=== PATIENT | male | born 1950 | race Caucasian/White ===

== ENCOUNTER 2017-03-07 15:43 | Emergency (ER) | payer MEDICAID, OTHER ==
[~2017-03-07] VITALS: Ht 180.3 cm; Wt 68.0 kg
[~2017-03-07 15:43] MED LIST: LOSA25TA13 PO
--- NOTE | 2017-03-07 16:13 | NUR ---
DR DODD AT THE BEDSIDE FOR EVAL AND EXAM.
[2017-03-07] MEDS ORDERED: TDAP DIPH,PERTUSS,TET VAC/PF 0.5 ML DISP.SYRIN IM ONE ×2 (16:15→16:32)
[2017-03-07] MEDS ORDERED: NEOMY/BACITRA/POLYMYXIN B OINT UD PACKET TP ONE ×2 (16:15→16:32)
--- NOTE | 2017-03-07 17:08 | NUR ---
pt left er for ct.
--- NOTE | 2017-03-07 17:53 | NUR ---
Patient is resting comfortably in bed with eyes closed, NAD noted.
--- NOTE | 2017-03-07 18:34 | NUR ---
Patient discharged to home in stable conditon. Written and verbal after care instructions given. Patient verbalizes understanding of instructions.
[2017-03-07 18:36] VITALS: BP 140/77
== END 2017-03-07 18:36 | disposition home or self-care (01) ==
LOC: ER 15:45
DX: S01.81XA Laceration without foreign body of other part of head, initial encounter (principal); S40.012A Contusion of left shoulder, initial encounter; R51 Headache; I10 Essential (primary) hypertension; F10.20 Alcohol dependence, uncomplicated; F17.200 Nicotine dependence, unspecified, uncomplicated; F11.10 Opioid abuse, uncomplicated; V13.4XXA Pedal cycle driver injured in collision with car, pick-up truck or van in traffic accident, initial encounter; Y93.89 Activity, other specified; Y92.89 Other specified places as the place of occurrence of the external cause; Y99.8 Other external cause status
CPT/HCPCS: 70450; 90715; A4217; A4663

== ENCOUNTER 2017-09-01 21:59 | Emergency (ER) | payer OTHER ==
[~2017-09-01] VITALS: Ht 180.3 cm; Wt 79.4 kg
[2017-09-01] MEDS: MORPHINE SULFATE 10 MG/1 ML DISP.SYRIN IM ONE (23:12)
[2017-09-01] MEDS: CARISOPRODOL 350 MG TABLET PO ONE (23:13)
[2017-09-01] MEDS ORDERED: CARISOPRODOL 350 MG TABLET ONE (23:33)
[2017-09-01] MEDS ORDERED: MORPHINE SULFATE 10 MG/1 ML DISP.SYRIN ONE (23:33)
--- NOTE | 2017-09-02 00:58 | NUR ---
Patient discharged to home in stable conditon. Written and verbal after care instructions given. Patient verbalizes understanding of instructions.
== END 2017-09-02 00:58 | disposition home or self-care (01) ==
LOC: ER 21:59
DX: M54.5 Low back pain (principal); Z59.0 Homelessness; I10 Essential (primary) hypertension; F17.200 Nicotine dependence, unspecified, uncomplicated
CPT/HCPCS: 72100; A4663; J2270

== ENCOUNTER 2018-04-26 20:52 | Emergency (ER) | payer SELFPAY ==
[~2018-04-26] VITALS: Ht 180.3 cm; Wt 65.8 kg
--- NOTE | 2018-04-26 22:24 | NUR ---
Dr. Hoang BARRETO MD at bedside for MSE.
[2018-04-26] MEDS ORDERED: HYDROMORPHONE 2 MG/1 ML DISP.SYRIN ONE (22:41)
[2018-04-26] MEDS ORDERED: diphenhydrAMINE 50 MG/1 ML VIAL ONE (22:41)
[2018-04-26] MEDS ORDERED: diphenhydrAMINE 50 MG/1 ML VIAL IM ONE (22:45)
[2018-04-26] MEDS ORDERED: LIDOCAINE HCL 1% 20 ML VIAL IJ ONE (22:45)
[2018-04-26] MEDS ORDERED: TDAP DIPH,PERTUSS,TET VAC/PF 0.5 ML DISP.SYRIN IM ONE ×2 (22:45→23:52)
[2018-04-26] MEDS ORDERED: HYDROMORPHONE 1 MG/1 ML DISP.SYRIN IM ONE (22:45)
--- NOTE | 2018-04-27 00:01 | NUR ---
Patient discharged to home in stable conditon. Written and verbal after care instructions given. Patient verbalizes understanding of instructions. Pt left ER in steady gait. All belongings with pt. VSS.
[2018-04-27 00:03] VITALS: BP 158/74
== END 2018-04-27 00:04 | disposition home or self-care (01) ==
LOC: ER 20:53
DX: L02.413 Cutaneous abscess of right upper limb (principal); I10 Essential (primary) hypertension; F17.200 Nicotine dependence, unspecified, uncomplicated
CPT/HCPCS: 10060; 90471; 90715; 96372 ×2; 99284; A4663; J1170; J1200; J3490

== ENCOUNTER 2018-04-28 22:28 | Inpatient (IN) | payer SELFPAY ==
[~2018-04-28] VITALS: Ht 180.3 cm; Wt 68.0 kg
[2018-04-29 00:39] LABS: BASOPHILS # (AUTO) 0.1 K/uL (0.0-8.0); BASOPHILS % (AUTO) 0.8 % (0.0-2.0); EOSINOPHILS # (AUTO) 0.2 K/uL (0.0-0.7); EOSINOPHILS % (AUTO) 1.7 % (0.0-7.0); HEMATOCRIT 38.3 % (36.7-47.1); HEMOGLOBIN 12.8 g/dL (12.5-16.3); LYMPHOCYTES # (AUTO) 1.2 K/uL (20.0-40.0); LYMPHOCYTES % (AUTO) 11.9 % (20.5-51.5); MEAN CORPUSCULAR HEMOGLOBIN 27.1 uug (23.8-33.4); MEAN CORPUSCULAR HGB CONC 33 g/dL (32.5-36.3); MEAN CORPUSCULAR VOLUME 81.1 fL (73.0-96.2); MONOCYTES # (AUTO) 0.8 K/uL (2.0-10.0); MONOCYTES % (AUTO) 8.2 % (0.0-11.0); NEUTROPHILS # (AUTO) 7.6 K/uL (1.8-8.9); NEUTROPHILS % (AUTO) 77.4 % (38.5-71.5); PLATELET COUNT (AUTO) 375 K/uL (152-348); RED BLOOD CELL COUNT(AUTO) 4.71 MIL/uL (4.06-5.63); WHITE BLOOD COUNT (AUTO) 9.8 K/uL (3.6-10.2)
[2018-04-29] MEDS ORDERED: VANCOMYCIN IV 1,000 MG in IV DEXTROSE 5% 250 ML IV ONE (00:45)
[2018-04-29] MEDS ORDERED: ONDANSETRON IV *ER 4 MG/2 ML VIAL IV ONE (00:45)
[2018-04-29] MEDS ORDERED: CLINDAMYCIN PHOSPHATE IV 600 MG in IV DEXTROSE 5% 100 ML IV ONE (00:45)
[2018-04-29] MEDS ORDERED: PIPERACILLIN SODIUM/TAZOBACTAM 3.375 G in IV DEXTROSE 5% 50 ML IV ONE (00:45)
[2018-04-29] MEDS ORDERED: HYDROMORPHONE 1 MG/1 ML DISP.SYRIN IV ONE (00:45)
[2018-04-29 00:48] LABS: CREATININE 0.9 mg/dL (0.6-1.3); POTASSIUM 4.3 mmol/L (3.5-5.1)
[2018-04-29] MEDS ORDERED: HYDROMORPHONE 2 MG/1 ML DISP.SYRIN ONE (00:49)
[2018-04-29] MEDS ORDERED: ONDANSETRON 4 MG/2 ML VIAL ONE (00:50)
[2018-04-29] MEDS ORDERED: PIPERACILLIN/TAZOBACTAM/D5W 50 ML IV ONE (00:50)
[2018-04-29 00:54] LABS: BILIRUBIN,DIRECT 0.2 mg/dL (0.0-0.2); BILIRUBIN,TOTAL 0.7 mg/dL (0.2-1.0); TOTAL PROTEIN, SERUM 7.7 g/dL (6.4-8.2)
[2018-04-29] MEDS ORDERED: Z GUARD REMEDY PASTE 57 GM TUBE TOP PRN (01:00)
[2018-04-29] MEDS ORDERED: ACETAMINOPHEN 325 MG TABLET PO PRN (01:00)
[2018-04-29] MEDS ORDERED: MAGNESIUM HYDROXIDE 30 ML LIQUID UDC PO PRN (01:00)
[2018-04-29] MEDS ORDERED: ONDANSETRON 4 MG/2 ML VIAL IV PRN (01:00)
[2018-04-29] MEDS ORDERED: HYDROMORPHONE 1 MG/1 ML DISP.SYRIN IV PRN (01:00)
[2018-04-29] MEDS ORDERED: CLINDAMYCIN PHOSPHATE 600 MG/4 ML VIAL ONE (01:17)
[2018-04-29] MEDS ORDERED: VANCOMYCIN IV 200 ML ONE (02:02)
--- NOTE | 2018-04-29 02:05 | NUR ---
Pt. admitted to Telemetry , under care of Dr. Abraham. Diagnosis: Cellulitis (Right shoulder) Belongs List completed. VSS. Report given to inpatient floor RN.
[2018-04-29 03:14] VITALS: BP 122/77
--- NOTE | 2018-04-29 03:40 | NUR ---
Received report from ER nurse. Pt arrived in the unit at 0240 via wheelchair accompanied by RN. No acute distress noted. Left AC gauge 20, patent and intact. VSS. Pertinent assessments done. Oriented pt to the unit and equipment. Abscess on the right shoulder noted with swelling and redness. Picture taken and placed in chart. As per ER nurse, ordered open to air. Kept site clean. Safety measures maintained. Call light and personal belongings within reach. Will continue to monitor.
[2018-04-29] MEDS: HYDROCODONE/APAP 5-325MG TABLET PO PRN ×4 (03:59→22:43)
--- NOTE | 2018-04-29 06:19 | NUR ---
Pt slept comfortably. C/o pain on right shoulder 03/29, [place] was given at 0359. Will continue to monitor.
--- NOTE | 2018-04-29 07:38 | NUR ---
patient resting comfortably in bed at this time, no s/s of distress. wound care consult will be placed. right shoulder cellulitis. will monitor wound site and provide care per md orders. a/ox4. heroin user. will monitor bp. ambulatory. will monitor throughout shift.
[2018-04-29] MEDS: LOSARTAN POTASSIUM 25 MG TABLET PO SCH (08:54)
[2018-04-29 11:24] VITALS: BP 119/71
--- NOTE | 2018-04-29 11:35 | NUR ---
Clinical Pharmacy Note: Vancomycin Pharmacy to Dose Subjective: To start vancomycin in this 67 y/o male for indication of cellulitis Objective: weight 68 kg height 180 cm BUN 15 Scr 0.9 wbc 9.8 temp 97.6 1gm vanco given 04/29 @ 0045 in ER Assessment/Plan As renal function appears ok, will start regimen of 1gm vanco q12hr for estimated trough of 17. 2nd dose today at 1230. Trough before 4th dose will be due tomorrow at 1200. Will check when trough available and adjust as needed. Will follow
[2018-04-29] MEDS: VANCOMYCIN IV 1 G in PREMIXED 0 EACH IV SCH ×2 (11:55→23:35)
--- NOTE | 2018-04-29 12:38 | NUR ---
WOUND CARE CONSULT WOUND CARE RECEIVED CONSULT FOR ABSCESS RIGHT SHOULDER. WOUND CARE WILL DEFER CONSULT AND TREATMENT PLAN TO SURGICAL TEAM AT THIS TIME. PATIENT WITH BUNNY AT 21. WILL SEE PRN. DISCUSSED WITH NAVIGATION TEACHER.
[2018-04-29 15:48] VITALS: BP 93/51
[2018-04-29] MEDS ORDERED: SILVER NITRATE APPLICATOR STICK EACH TP STA (18:40)
[2018-04-29] MEDS ORDERED: LIDOCAINE 2%-EPI 1:100,000 20 ML VIAL TP STA (18:40)
[2018-04-29 19:00] VITALS: BP 121/61
--- NOTE | 2018-04-29 19:28 | NUR ---
RECEIVED PT AWAKE, ALERT, AND ORIENTEDX4. PT SHOWS NO SIGNS OF DISTRESS. PT JUST HAD HIS INCISION AND DRAINAGE DONE. CALL LIGHT WITHIN REACH. BED ALARM ON AND IN LOW POSITION. SIDE RAILS UPX2. WILL CONTINUE TO MONITOR.
--- NOTE | 2018-04-29 19:48 | NUR ---
non-administration: silver nitrate applicator. returned in 'return to pharmacy' bin in medication room.
[2018-04-30] MEDS: HYDROCODONE/APAP 5-325MG TABLET PO PRN ×4 (03:12→18:02)
[2018-04-30 04:00] VITALS: BP 138/58
--- NOTE | 2018-04-30 06:32 | NUR ---
PT SLEPT THROUGHOUT THE SHIFT. PT SHOWS NO SIGNS OF DISTRESS. PRESCRIBED MEDICATION GIVEN AND PT TOLERATED IT WELL. PT GIVEN PAIN MEDICATION. REFUSED BLOOD WORKS. CHARGE NURSE AWARE. SAFETY AND COMFORT PROVIDED. WILL ENDORSE ACCORDINGLY TO INCOMING NURSE.
[2018-04-30] MEDS ORDERED: HYDROMORPHONE 2 MG/1 ML DISP.SYRIN IV PRN (08:00)
--- NOTE | 2018-04-30 08:01 | NUR ---
Awake, alert. Saline lock pulled out. Explained need of saline lock
[2018-04-30] MEDS: LOSARTAN POTASSIUM 25 MG TABLET PO SCH (08:38)
[2018-04-30 09:30] LABS: BASOPHILS # (AUTO) 0.1 K/uL (0.0-8.0); BASOPHILS % (AUTO) 1.4 % (0.0-2.0); EOSINOPHILS # (AUTO) 0.1 K/uL (0.0-0.7); EOSINOPHILS % (AUTO) 1.1 % (0.0-7.0); HEMATOCRIT 39.7 % (36.7-47.1); HEMOGLOBIN 13.2 g/dL (12.5-16.3); LYMPHOCYTES % (AUTO) 15.9 % (20.5-51.5); MEAN CORPUSCULAR HEMOGLOBIN 27.1 uug (23.8-33.4); MEAN CORPUSCULAR HGB CONC 33 g/dL (32.5-36.3); MEAN CORPUSCULAR VOLUME 81.5 fL (73.0-96.2); MONOCYTES # (AUTO) 0.5 K/uL (2.0-10.0); MONOCYTES % (AUTO) 8.2 % (0.0-11.0); NEUTROPHILS # (AUTO) 4.7 K/uL (1.8-8.9); NEUTROPHILS % (AUTO) 73.4 % (38.5-71.5); PLATELET COUNT (AUTO) 395 K/uL (152-348); RED BLOOD CELL COUNT(AUTO) 4.87 MIL/uL (4.06-5.63); WHITE BLOOD COUNT (AUTO) 6.4 K/uL (3.6-10.2)
[2018-04-30 09:39] LABS: CREATININE 0.7 mg/dL (0.6-1.3); MAGNESIUM 2.1 mg/dL (1.8-2.4); PHOSPHOROUS 2.7 mg/dL (2.5-4.9); POTASSIUM 3.8 mmol/L (3.5-5.1)
[2018-04-30 11:44] VITALS: BP 117/72
--- NOTE | 2018-04-30 12:00 | NUR ---
Attempted saline lock but unsuccessful
[2018-04-30] MEDS: VANCOMYCIN IV 1 G in PREMIXED 0 EACH IV SCH ×2 (14:00→23:00)
--- NOTE | 2018-04-30 14:00 | NUR ---
Saline lock attempted by KEVIN Vásquez and [employer] but still unsuccessful. With midline order. Per platform mill supervisor, will come in by 1800
--- NOTE | 2018-04-30 14:11 | NUR ---
Clinical Pharmacy Note: Vancomycin Pharmacy to Dose Subjective: To continue vancomycin in this 67 y/o male for indication of cellulitis Objective: weight 68 kg height 180 cm BUN 13 Scr 0.7 wbc 6.4 temp 97.9 Vanco trough level: 7.7 Assessment/Plan Since vanco through level is sub-therapeutic, will change vanco dose from 1gm vanco IVPB q12hr to vanco 1gm IVPB q9h for estimated trough of 16 mcg/ml. 1st dose is due today at 1400. Plan to order trough level before 4th dose (not yet ordered) . Will follow
[2018-04-30 16:10] VITALS: BP 136/77
[2018-04-30] MEDS ORDERED: IBUPROFEN 400 MG TABLET PO PRN (17:15)
[2018-04-30 19:00] VITALS: BP 117/68
--- NOTE | 2018-04-30 19:00 | NUR ---
Vancomycin IV not infused, no IV access. [employer] Log[employer] Manager informed midline nurse still not here. Endorsed for further care
--- NOTE | 2018-04-30 19:25 | NUR ---
RECEIVED PT AWAKE, ALERT, AND ORIENTEDX4. PT SHOWS NO SIGNS OF DISTRESS. ENDORSE BY DAYSHIFT NURSE THAT PT WILL HAVE HIS MIDLINE INSERTION. WE ARE JUST WAITING FOR THE IV NURSE . SAFETY AND COMFORT PROVIDED TO THE PT. WILL CONTINUE TO MONITOR.
--- NOTE | 2018-04-30 23:00 | NUR ---
PT VANCOMYCIN FOR 1400 AND 2300 WAS NOT INFUSED DUE TO STILL WAITING FOR THE MIDLINE INSERTION FOR THE PT. PT STABLE. WILL CONTINUE TO MONITOR.
[2018-05-01] MEDS: HYDROCODONE/APAP 5-325MG TABLET PO PRN ×2 (01:26→08:11)
[2018-05-01 04:00] VITALS: BP 106/50
--- NOTE | 2018-05-01 06:33 | NUR ---
PT SLEPT INTERMITTENTLY DURING THE SHIFT. PT SHOWS NO SIGNS OF DISTRESS. PRESCRIBED MEDICATION GIVEN AND PT TOLERATED IT WELL.PT JUST GOT [place] FOR PAIN. GOT HIS NATIONAL EXPANSION RECRUITER FOR HIM. PUT A NOTE THAT I TOOK IT AND THAT ITS WITH US AND WE WILL RETURN IT AND HE CAN JUST ASKED FOR IT .SAFETY AND COMFORT PROVIDED. WILL ENDORSE ACCORDINGLY TO INCOMING NURSE FOR CONTINUITY OF CARE.
[2018-05-01 06:52] LABS: CREATININE 0.8 mg/dL (0.6-1.3); POTASSIUM 3.6 mmol/L (3.5-5.1)
[2018-05-01 07:28] LABS: BASOPHILS # (AUTO) 0.1 K/uL (0.0-8.0); BASOPHILS % (AUTO) 0.9 % (0.0-2.0); EOSINOPHILS # (AUTO) 0.4 K/uL (0.0-0.7); EOSINOPHILS % (AUTO) 5.4 % (0.0-7.0); HEMATOCRIT 37.9 % (36.7-47.1); HEMOGLOBIN 12.7 g/dL (12.5-16.3); LYMPHOCYTES % (AUTO) 29.9 % (20.5-51.5); MEAN CORPUSCULAR HEMOGLOBIN 27.5 uug (23.8-33.4); MEAN CORPUSCULAR HGB CONC 34 g/dL (32.5-36.3); MEAN CORPUSCULAR VOLUME 82.2 fL (73.0-96.2); MONOCYTES # (AUTO) 0.6 K/uL (2.0-10.0); MONOCYTES % (AUTO) 8.8 % (0.0-11.0); NEUTROPHILS # (AUTO) 3.8 K/uL (1.8-8.9); PLATELET COUNT (AUTO) 418 K/uL (152-348); RED BLOOD CELL COUNT(AUTO) 4.61 MIL/uL (4.06-5.63); WHITE BLOOD COUNT (AUTO) 6.8 K/uL (3.6-10.2)
--- NOTE | 2018-05-01 08:00 | NUR ---
NON ADMIN VANCOMYCIN IV DUE TO PENDING MIDLINE INSERTION. AWARE.
[2018-05-01] MEDS: LOSARTAN POTASSIUM 25 MG TABLET PO SCH (08:07)
[2018-05-01] MEDS: VANCOMYCIN IV 1 G in PREMIXED 0 EACH IV SCH (09:00)
[2018-05-01] MEDS ORDERED: HYDR-3326 PO (09:55)
[2018-05-01] MEDS ORDERED: SULF1TAB48 PO (09:55)
[2018-05-01] MEDS ORDERED: CEPH-570 PO (09:55)
[2018-05-01 11:16] VITALS: BP 108/57
--- NOTE | 2018-05-01 11:26 | NUR ---
WOUND TREATMENT DONE ORDERED, PT C/O OF SLIGHT PAIN AND TENDERNESS, NO S/S OF INFECTION/COMPLICATIONS. PATIENT TOLERATED PROCEDURE WELL, VS STABLE, AFEBRILE. DISCUSSED WITH PATIENT REGARDING F/U WITH PCP AND F/U WITH WOUND CARE UPON DISCHARGE. PT VERBALIZED UNDERSTANDING.
--- NOTE | 2018-05-01 11:29 | NUR ---
PATIENT DISCHARGED TO SELF CARE. PT STATED WILL GO BACK TO [facility].
--- NOTE | 2018-05-01 13:30 | NUR ---
DISCHARGE TEACHINGS/EDUCATION PROVIDED, PT VERBALIZED UNDERSTANDING. INSTRUCTED PATIENT TO FOLLOW UP WITH PCP FOR MEDICAL AND WOUND CARE/TREATMENT. COPY OF PRESCRIPTION PROVIDED. BELONGING LIST ACCOUNTED AND SIGNED FOR. ID BAND REMOVED. PT HAS NO IV ACCESS.
--- NOTE | 2018-05-01 13:50 | NUR ---
PATIENT LEFT THE UNIT, AMBULATORY, IN NO DISTRESS. PER SECURITY, PATIENT'S BICYCLE IS LOCATED AT THE LOBBY AND READY FOR THE PATIENT.
== END 2018-05-01 13:45 | disposition home or self-care (01) | DRG 603 ==
LOC: ER 22:30 → TELE 04-29 02:21 → MED 04-29 10:45
PROVIDERS: ADMIT Internal Medicine; ATTEND Nurse Practitioner Acute Care
PROC: 0H9BX0Z Drainage of Right Upper Arm Skin with Drainage Device, External Approach (ICD-10-PCS; principal; 2018-04-29)
DX: L03.113 Cellulitis of right upper limb (principal); L02.413 Cutaneous abscess of right upper limb; S41.031S Puncture wound without foreign body of right shoulder, sequela; X78.8XXS Intentional self-harm by other sharp object, sequela; Z59.0 Homelessness; Z91.14 Patient's other noncompliance with medication regimen; E88.09 Other disorders of plasma-protein metabolism, not elsewhere classified; D47.3 Essential (hemorrhagic) thrombocythemia; I10 Essential (primary) hypertension; B19.20 Unspecified viral hepatitis C without hepatic coma; F11.10 Opioid abuse, uncomplicated; F19.10 Other psychoactive substance abuse, uncomplicated
CPT/HCPCS: 36415; 70030-TC; 71045; 73030; 83605; 83735; 84100; 85025; 85730; 87040; 87070; 87077; 87806; 93005; A4663; J1170; J2405; J2543; J3370; J3490; J7060

== ENCOUNTER 2018-05-02 23:50 | Emergency (ER) | payer SELFPAY ==
[~2018-05-02] VITALS: Ht 180.3 cm; Wt 68.0 kg
[~2018-05-02 23:50] MED LIST changes: +CEPH-570 PO; +HYDR-3326 PO; +SULF1TAB48 PO
[2018-05-03] MEDS ORDERED: ONDANSETRON 4 MG/2 ML VIAL IM ONE (01:00)
[2018-05-03] MEDS ORDERED: HYDROMORPHONE 1 MG/1 ML DISP.SYRIN IM ONE (01:00)
[2018-05-03] MEDS ORDERED: ONDANSETRON 4 MG/2 ML VIAL ONE (01:04)
[2018-05-03] MEDS ORDERED: HYDROMORPHONE 2 MG/1 ML DISP.SYRIN ONE (01:04)
--- NOTE | 2018-05-03 02:38 | NUR ---
Patient discharged to home in stable conditon. Written and verbal after care instructions given. Patient verbalizes understanding of instructions. Applied WARREN wrap to pt's left ankle. Crutch training provided. Pt ambulated out of ER in stable condition. VSS.
[2018-05-03 02:40] VITALS: BP 138/88
== END 2018-05-03 02:41 | disposition home or self-care (01) ==
LOC: ER 23:53
DX: S93.402A Sprain of unspecified ligament of left ankle, initial encounter (principal); I10 Essential (primary) hypertension; F17.200 Nicotine dependence, unspecified, uncomplicated; F11.10 Opioid abuse, uncomplicated; F12.10 Cannabis abuse, uncomplicated; Z59.0 Homelessness; X58.XXXA Exposure to other specified factors, initial encounter; Y93.89 Activity, other specified; Y92.89 Other specified places as the place of occurrence of the external cause; Y99.8 Other external cause status
CPT/HCPCS: 73610; A4663; J1170; J2405

== ENCOUNTER 2019-02-08 22:50 | Emergency (ER) | payer MEDICAID, MEDICARE ==
[~2019-02-08] VITALS: Ht 180.3 cm; Wt 68.0 kg
[~2019-02-08 22:50] MED LIST changes: -LOSA25TA13 PO; +LOSA25TA27 PO
[2019-02-08] MEDS ORDERED: PANTOPRAZOLE SODIUM 40 MG TABLET.DR PO ONE ×2 (23:41→23:45)
[2019-02-08] MEDS ORDERED: MAG HYDROX/AL HYDROX/SIMETH 30 ML LIQUID UDC ONE (23:41)
[2019-02-08] MEDS ORDERED: DICYCLOMINE HCL LIQ 10 MG/5 ML UDC ONE (23:41)
[2019-02-08] MEDS ORDERED: DICYCLOMINE HCL LIQ 10 MG/5 ML UDC PO ONE (23:45)
[2019-02-08] MEDS ORDERED: MAG HYDROX/AL HYDROX/SIMETH 30 ML LIQUID UDC PO ONE (23:45)
--- NOTE | 2019-02-08 23:48 | NUR ---
PATIENT PROVIDED WITH MEAL
--- NOTE | 2019-02-08 23:52 | NUR ---
PATIENT STATES "I FEEL BETTER NOW."
--- NOTE | 2019-02-08 23:58 | NUR ---
Patient given written and verbal discharge instructions. Patient verbalizes understanding of instructions. Patient is ambulatory with steady gait. Refuses offer of halfway placement. Patient given list of available shelters in surrounding area.
[2019-02-09] VITALS: BP 135/88
== END 2019-02-09 00:02 | disposition home or self-care (01) ==
LOC: ER 22:52
DX: G89.29 Other chronic pain (principal); M79.605 Pain in left leg; K21.9 Gastro-esophageal reflux disease without esophagitis; I10 Essential (primary) hypertension; F17.200 Nicotine dependence, unspecified, uncomplicated; F12.10 Cannabis abuse, uncomplicated; F11.10 Opioid abuse, uncomplicated; Z59.0 Homelessness; Z79.899 Other long term (current) drug therapy
CPT/HCPCS: A4663

== ENCOUNTER 2019-07-19 01:05 | Emergency (ER) | payer MEDICARE, MEDICAID ==
[~2019-07-19] VITALS: Ht 180.3 cm; Wt 72.6 kg
[2019-07-19] MEDS ORDERED: FLUORESCEIN SODIUM 1 MG STRIP ONE (01:17)
[2019-07-19] MEDS: FLUORESCEIN SODIUM 1 MG STRIP OP ONE (01:28)
--- NOTE | 2019-07-19 01:28 | NUR ---
Patient does not wish to proceed with medical care recommended by Dr. Bradford. Patient given information related to possible complications, up to and including , which could occur as a result of leaving the hospital at this time. Patient verbalizes understanding of risks involved due to leaving against medical advice. Patient has signed AMA form.
== END 2019-07-19 01:30 | disposition left against medical advice (07) ==
LOC: ER 01:14
DX: S05.42XA Penetrating wound of orbit with or without foreign body, left eye, initial encounter (principal); I10 Essential (primary) hypertension; F17.200 Nicotine dependence, unspecified, uncomplicated; F11.10 Opioid abuse, uncomplicated; F12.10 Cannabis abuse, uncomplicated; W22.8XXA Striking against or struck by other objects, initial encounter; Y93.89 Activity, other specified; Y92.89 Other specified places as the place of occurrence of the external cause; Y99.8 Other external cause status
CPT/HCPCS: A4663

== ENCOUNTER 2019-10-02 14:36 | Inpatient (IN) | payer MEDICARE, OTHER ==
[~2019-10-02] VITALS: Ht 180.3 cm; Wt 63.1 kg
--- NOTE | 2019-10-02 15:05 | NUR ---
PATIENT WAS MSE BY DR CARLTON. PATIENT A & O X4.
[2019-10-02] MEDS ORDERED: VANCOMYCIN IV 1,000 MG in IV DEXTROSE 5% 250 ML IV ONE (15:15)
[2019-10-02] MEDS ORDERED: PIPERACILLIN SODIUM/TAZOBACTAM 3.375 G in IV DEXTROSE 5% 50 ML IV ONE (15:15)
[2019-10-02] MEDS ORDERED: LIDOCAINE 1%-EPI 1:100,000 20 ML VIAL IJ ONE (15:15)
[2019-10-02 15:46] LABS: BASOPHILS # (AUTO) 0.1 K/uL (0.0-8.0); BASOPHILS % (AUTO) 0.6 % (0.0-2.0); EOSINOPHILS # (AUTO) 0.1 K/uL (0.0-0.7); EOSINOPHILS % (AUTO) 0.5 % (0.0-7.0); HEMATOCRIT 40.1 % (36.7-47.1); HEMOGLOBIN 13.1 g/dL (12.5-16.3); LYMPHOCYTES # (AUTO) 0.6 K/uL (20.0-40.0); LYMPHOCYTES % (AUTO) 4.2 % (20.5-51.5); MEAN CORPUSCULAR HEMOGLOBIN 25.3 uug (23.8-33.4); MEAN CORPUSCULAR HGB CONC 33 g/dL (32.5-36.3); MEAN CORPUSCULAR VOLUME 77.6 fL (73.0-96.2); MONOCYTES # (AUTO) 0.8 K/uL (2.0-10.0); MONOCYTES % (AUTO) 5.1 % (0.0-11.0); NEUTROPHILS # (AUTO) 13.6 K/uL (1.8-8.9); NEUTROPHILS % (AUTO) 89.6 % (38.5-71.5); PLATELET COUNT (AUTO) 586 K/uL (152-348); RED BLOOD CELL COUNT(AUTO) 5.17 MIL/uL (4.06-5.63); WHITE BLOOD COUNT (AUTO) 15.2 K/uL (3.6-10.2)
[2019-10-02 15:54] LABS: CREATININE 0.9 mg/dL (0.6-1.3); POTASSIUM 4.1 mmol/L (3.5-5.1)
[2019-10-02] MEDS ORDERED: PIPERACILLIN/TAZOBACTAM/D5W 50 ML IV ONE (15:56)
[2019-10-02] MEDS ORDERED: VANCOMYCIN IV 200 ML ONE (15:56)
[2019-10-02 15:59] LABS: BILIRUBIN,DIRECT 0.4 mg/dL (0.0-0.2); BILIRUBIN,TOTAL 0.8 mg/dL (0.2-1.0); TOTAL PROTEIN, SERUM 8.2 g/dL (6.4-8.2)
[2019-10-02] MEDS ORDERED: IV NORMAL SALINE 1000 ML BAG IV ONE (17:15)
--- NOTE | 2019-10-02 17:19 | NUR ---
pt transfered to floor in stable condition
[2019-10-02] MEDS ORDERED: ONDANSETRON 4 MG/2 ML VIAL IV PRN (17:30)
[2019-10-02] MEDS ORDERED: MAGNESIUM HYDROXIDE 30 ML LIQUID UDC PO PRN (17:30)
[2019-10-02] MEDS ORDERED: Z GUARD REMEDY PASTE 57 GM TUBE TOP PRN (17:30)
--- NOTE | 2019-10-02 17:35 | NUR ---
Received this patient from ER per javan, 68 yo male, with the diagnosis of abscess right buttocks. Transferred to bed comfortably. Routine admission care rendered. Placed tele SR. Awake, alert, oriented x 4, able to move all extremities on purpose. Vancomycin IV infusing well to left shoulder access. With admission orders from Dr. Avalos
[2019-10-02 18:06] VITALS: BP 132/70
[2019-10-02] MEDS: ENOXAPARIN SODIUM 40 MG/0.4 ML DISP.SYRIN SQ SCH (18:26)
[2019-10-02] MEDS: IV NS 1000 ML 1,000 ML IV PRN (18:26)
[2019-10-02] MEDS: HYDROCODONE/APAP 10-325 MG TABLET PO PRN (18:31)
--- NOTE | 2019-10-02 18:45 | NUR ---
Repeat lactic acid 2.7 Dr. Avalos informed. No new orders. IVF infusing. Afebrile.
--- NOTE | 2019-10-02 19:01 | NUR ---
PHARMACY CLINICAL NOTES ( VANCOMYCIN DOSING) S: 68 YO Patient has been having swelling and redness, warmth and tenderness to the right buttocks cheek for 1 week. Gradually worsening. Patient states this happened after he accidentally sat down on some thumb tacks in the bus. ordered Zosyn and Vancomycin for treatment of cellulitis O: BUN/SCR 14/0.9, WBC 15.3, T max 97.5, DOSING WT 63 KG , T 1/2 11.95 HRS A/P: PT received 1 dose of Vancomycin 1 gm in ER @ 1500 (dose #1). will continue with regimen of Vancomycin 1 gm IVPB q15h. This regimen would yield peak of 38 and trough of 17. Plan to order Vanco Trough prior to 4th dose (not ordered yet) will continue to monitor renal fxn and Vanco level and adjust dose if necessary.
--- NOTE | 2019-10-02 19:30 | NUR ---
Received patient awake and alert in bed, no signs of acute distress noted. Complains of some pain to the right buttocks, day shift nurse, administered PRN pain medication and says it is helping. IVF running to the left upper arm, no s/s of infection or infiltration noted. Safety measures initiated, bed is low and locked, call light within. Will continue to monitor.
[2019-10-02 20:16] VITALS: BP 110/69
--- NOTE | 2019-10-02 21:00 | NUR ---
Patient is to have 2 antibiotics running at 0600, Zosyn for 4 hours and Vanco for 1 hr 30 min. ER attempted multiple times for a second IV access on upper extremities, unable to get one asking to put one on lower extremity. Informed charge nurse. Was able to get #20 on right lower extremity.
[2019-10-02] MEDS: PIPERACILLIN/TAZOBACTAM/D5W 3.375 G in PREMIXED 1 EACH IV SCH (21:28)
[2019-10-02] MEDS ORDERED: PIPERACILLIN SODIUM/TAZOBACTAM 4.5 G in IV DEXTROSE 5% 50 ML IV SCH (22:00)
[2019-10-03 00:22] VITALS: BP 120/64
[2019-10-03] MEDS: HYDROCODONE/APAP 5-325MG TABLET PO PRN ×2 (01:24→09:37)
[2019-10-03 04:00] VITALS: BP 115/64
[2019-10-03] MEDS: PIPERACILLIN/TAZOBACTAM/D5W 3.375 G in PREMIXED 1 EACH IV SCH ×3 (06:10→22:58)
[2019-10-03] MEDS: VANCOMYCIN IV 1,000 MG in IV DEXTROSE 5% 250 ML IV SCH ×2 (06:10→20:36)
[2019-10-03] MEDS: PANTOPRAZOLE SODIUM 40 MG TABLET.DR PO SCH (06:16)
[2019-10-03] MEDS: HYDROCODONE/APAP 10-325 MG TABLET PO PRN (06:31)
--- NOTE | 2019-10-03 06:44 | NUR ---
Patient slept well, no distress noted. Pain managed with PRN [place] given x2. Both Zosyn and Vanco are now infusing, tolerating well. Safety measures given, NSR on TELE. Will endorse to next shift.
--- NOTE | 2019-10-03 07:30 | NUR ---
Patient in bed sleeping, no distress noted and no c/o at this time. Bed in low position, side rails up x2. Patient is on room air. IV intact and patent , provide safety and comfort, call light within reach. will continue to monitor
--- NOTE | 2019-10-03 09:34 | NUR ---
PHARMACY CLINICAL NOTES ( VANCOMYCIN DOSING) S: To continue vanco dosing for this 68 yo male patient for right buttock abscess O: BUN/SCR 14/0.9 (10/02) , WBC 15.3 (10/02) , T 98.4 wt 163 kg ht 180 cm A/P: Will continue same dose of Vancomycin 1 gm IVPB q15h for today. 3rd dose tonight at 2100. Plan to order Vanco Trough prior to 4th dose (ordered for 10/04 at 1130). Pharmacy shall review the level & adjust the dose if needed. Will follow.
[2019-10-03 11:25] VITALS: BP 120/60
[2019-10-03] MEDS ORDERED: HYDROMORPHONE 1 MG/1 ML DISP.SYRIN IV ONE (14:38)
--- NOTE | 2019-10-03 15:08 | NUR ---
WOUND CARE CONSULT: PT PRESENTS WITH RT BUTTOCK ABSCESS, S/P INCISION AND DRAINAGE WELL LEFT ANKLE WOUND, PRESENT ON ADMISSION. RECOMMEND SURGICAL AND DPM CONSULTS. DR TERE CERVANTES NOTIFIED OF SURGICAL CONSULT AND PT SEEN WITH [facility]CHT SURGICAL N.P. DPM CONSULT REQUESTED FROM DR THOMAS MCCLELLAN. MSG LEFT RECOMMENDATIONS MADE FOR WOUND CARE AND SKIN PROTECTION. DISCUSSED WITH NURSING STAFF AND SURGICAL N.P. LEFT ANKLE WOUND CARE RECOMMENDATIONS MADE AND DISCUSSED WITH NURSING STAFF - TIL SEEN BY DPM. WILL SEE PRN. [place] IN AGREEMENT WITH PLAN OF CARE.
[2019-10-03] MEDS: NICOTINE 21 MG/24HR PATCH TD SCH (15:30)
[2019-10-03 15:36] VITALS: BP 137/72
[2019-10-03] MEDS: HYDROMORPHONE 1 MG/1 ML DISP.SYRIN IV PRN (18:27)
[2019-10-03] MEDS: IV NS 1000 ML 1,000 ML IV PRN (19:52)
--- NOTE | 2019-10-03 20:00 | NUR ---
Received patient in bed awake A&Ox4. No SOB noted, not in distress. No complaints of pain at this time. IV on R lower leg intact and patent w/ IVF infusing. SR on Tele monitor at 68bpm. Safety measures observed. Call light in reach
[2019-10-03 20:09] VITALS: BP 125/79
[2019-10-03] MEDS: ENOXAPARIN SODIUM 40 MG/0.4 ML DISP.SYRIN SQ SCH (20:36)
[2019-10-04] VITALS: BP 125/64
[2019-10-04] MEDS: HYDROMORPHONE 1 MG/1 ML DISP.SYRIN IV PRN ×4 (02:19→21:44)
[2019-10-04 04:54] VITALS: BP 122/74
[2019-10-04] MEDS: PIPERACILLIN/TAZOBACTAM/D5W 3.375 G in PREMIXED 1 EACH IV SCH ×3 (05:16→21:34)
[2019-10-04] MEDS: PANTOPRAZOLE SODIUM 40 MG TABLET.DR PO SCH (06:08)
--- NOTE | 2019-10-04 06:39 | NUR ---
Patient slept well. Medicated w/ PRN Dilaudid 1mg IV x 1 this shift for pain on his R buttock. Dressing on R buttock changed. Wound cx sent to lab. All needs attended. Will endorse accordingly
[2019-10-04] MEDS: NICOTINE 21 MG/24HR PATCH TD SCH (08:03)
[2019-10-04 10:31] LABS: BASOPHILS % (AUTO) 0.4 % (0.0-2.0); EOSINOPHILS # (AUTO) 0.2 K/uL (0.0-0.7); EOSINOPHILS % (AUTO) 2.5 % (0.0-7.0); HEMATOCRIT 38.6 % (36.7-47.1); HEMOGLOBIN 12.4 g/dL (12.5-16.3); LYMPHOCYTES % (AUTO) 13.5 % (20.5-51.5); MEAN CORPUSCULAR HEMOGLOBIN 25.3 uug (23.8-33.4); MEAN CORPUSCULAR HGB CONC 32 g/dL (32.5-36.3); MEAN CORPUSCULAR VOLUME 78.7 fL (73.0-96.2); MONOCYTES # (AUTO) 0.5 K/uL (2.0-10.0); MONOCYTES % (AUTO) 6.7 % (0.0-11.0); NEUTROPHILS # (AUTO) 5.8 K/uL (1.8-8.9); NEUTROPHILS % (AUTO) 76.9 % (38.5-71.5); PLATELET COUNT (AUTO) 508 K/uL (152-348); WHITE BLOOD COUNT (AUTO) 7.6 K/uL (3.6-10.2)
[2019-10-04 10:40] LABS: CREATININE 0.9 mg/dL (0.6-1.3); POTASSIUM 4.2 mmol/L (3.5-5.1)
[2019-10-04 10:45] LABS: BILIRUBIN,TOTAL 0.3 mg/dL (0.2-1.0); MAGNESIUM 1.8 mg/dL (1.8-2.4); PHOSPHOROUS 3.4 mg/dL (2.5-4.9); TOTAL PROTEIN, SERUM 7.3 g/dL (6.4-8.2)
[2019-10-04 10:54] LABS: THYROID STIMULATING HORMONE 4.449 mIU/mL (0.358-3.740)
[2019-10-04 11:21] VITALS: BP 140/75
[2019-10-04] MEDS: IV NS 1000 ML 1,000 ML IV PRN (12:11)
[2019-10-04] MEDS: VANCOMYCIN IV 1,000 MG in IV DEXTROSE 5% 250 ML IV SCH ×2 (12:18→19:52)
--- NOTE | 2019-10-04 13:20 | NUR ---
PHARMACY CLINICAL NOTES ( VANCOMYCIN DOSING) S: To continue vanco dosing for this 68 yo male patient for right buttock abscess O: BUN/SCR 8/0.9, WBC 7.6 , T 98.6 wt 163 kg ht 180 cm vanco trough 6.1 @ 10:30 A/P: Re-calculated the dose per new trough available (was drawn early). Will continue as Vancomycin 1 gm q8h estimated peak of 35.8 and trough of 16.1.Next trough ordered prior to the dose on 10/05@ 11:30. Pharmacy shall review the level & adjust the dose if needed. Will follow.
[2019-10-04 15:52] VITALS: BP 141/77
[2019-10-04] MEDS ORDERED: LIDOCAINE 1%-EPI 1:100,000 20 ML VIAL TP ONE (18:00)
--- NOTE | 2019-10-04 19:30 | NUR ---
Received pt awake, alert and orientedx4. Pt in no acute distress. Iv intact. Safety and comfort provided. Will continue to monitor.
[2019-10-04 20:01] VITALS: BP 148/79
[2019-10-04] MEDS: ENOXAPARIN SODIUM 40 MG/0.4 ML DISP.SYRIN SQ SCH (21:32)
--- NOTE | 2019-10-04 23:08 | NUR ---
Pt insisted to take out the packing from his Incision and Drainage on left shoulder. Minimal drainage noted. Sterile dressing placed.
[2019-10-04] MEDS: ACETAMINOPHEN 325 MG TABLET PO PRN (23:14)
[2019-10-04] MEDS: ZOLPIDEM 5 MG TABLET PO PRN (23:14)
--- NOTE | 2019-10-04 23:15 | NUR ---
Pt in pain given Tylenol since I just gave Dilaudid at 2144h. Pt requested Ambien for sleep. Pt in no acute respiratory distress. Safety provided. Will continue to monitor.
[2019-10-05 01:25] VITALS: BP 131/73
[2019-10-05] MEDS: VANCOMYCIN IV 1,000 MG in IV DEXTROSE 5% 250 ML IV SCH ×3 (04:03→19:47)
[2019-10-05 05:32] VITALS: BP 170/81
[2019-10-05 05:47] VITALS: BP 148/81
--- NOTE | 2019-10-05 06:13 | NUR ---
Pt in no acute distress. Prescribed medication given and pt tolerated it well. Dilaudid given at 2144h. Safety and comfort provided. All needs are met. Will endorse to incoming nurse for continuity of care.
[2019-10-05] MEDS: PANTOPRAZOLE SODIUM 40 MG TABLET.DR PO SCH (06:18)
[2019-10-05] MEDS: PIPERACILLIN/TAZOBACTAM/D5W 3.375 G in PREMIXED 1 EACH IV SCH (06:21)
[2019-10-05] MEDS: NICOTINE 21 MG/24HR PATCH TD SCH (08:00)
[2019-10-05] MEDS: SILVER SULFADIAZINE 1% CREAM 50 GM TP SCH (08:01)
--- NOTE | 2019-10-05 11:38 | NUR ---
PHARMACY CLINICAL NOTES ( VANCOMYCIN DOSING) S: To continue vanco dosing for this 68 yo male patient for right buttock abscess O: BUN/SCR 8/0.9 (10/04), WBC 7.6 (10/04) , T 97.7 wt 163 kg ht 180 cm Vanco trough pending today at 1130 A/P: Will continue as Vancomycin 1 gm q8h estimated peak of 35.8 and trough of 16.1.Next trough ordered prior to the dose due today at 11:30. Will check level and adjust as appropriate when resulted. Will follow Addendum: 10/05/19 at 1230 by SANDRA OCASIO ADM TROUGH RESULTED 18, WILL CONTINUE SAME REGIMEN OF 1GM Q8H. TO FOLLOW
[2019-10-05 11:46] VITALS: BP 134/80
[2019-10-05 11:58] LABS: BASOPHILS # (AUTO) 0.1 K/uL (0.0-8.0); BASOPHILS % (AUTO) 1.1 % (0.0-2.0); EOSINOPHILS # (AUTO) 0.1 K/uL (0.0-0.7); EOSINOPHILS % (AUTO) 1.3 % (0.0-7.0); HEMATOCRIT 40.9 % (36.7-47.1); HEMOGLOBIN 13.3 g/dL (12.5-16.3); LYMPHOCYTES # (AUTO) 0.8 K/uL (20.0-40.0); LYMPHOCYTES % (AUTO) 11.3 % (20.5-51.5); MEAN CORPUSCULAR HEMOGLOBIN 25.7 uug (23.8-33.4); MEAN CORPUSCULAR HGB CONC 33 g/dL (32.5-36.3); MEAN CORPUSCULAR VOLUME 78.7 fL (73.0-96.2); MONOCYTES # (AUTO) 0.4 K/uL (2.0-10.0); MONOCYTES % (AUTO) 5.5 % (0.0-11.0); NEUTROPHILS # (AUTO) 5.9 K/uL (1.8-8.9); NEUTROPHILS % (AUTO) 80.8 % (38.5-71.5); PLATELET COUNT (AUTO) 536 K/uL (152-348); WHITE BLOOD COUNT (AUTO) 7.3 K/uL (3.6-10.2)
[2019-10-05 12:07] LABS: CREATININE 0.9 mg/dL (0.6-1.3); MAGNESIUM 1.9 mg/dL (1.8-2.4); PHOSPHOROUS 3.3 mg/dL (2.5-4.9); POTASSIUM 3.9 mmol/L (3.5-5.1)
[2019-10-05] MEDS: HYDROMORPHONE 1 MG/1 ML DISP.SYRIN IV PRN ×2 (12:19→19:59)
--- NOTE | 2019-10-05 12:33 | NUR ---
reported by lab lactic acid is 2.2 made aware
[2019-10-05] MEDS: IV NS 1000 ML 1,000 ML IV PRN (14:25)
[2019-10-05] MEDS: ACETAMINOPHEN 325 MG TABLET PO PRN (14:36)
[2019-10-05 15:30] VITALS: BP 139/71
[2019-10-05] MEDS: ENSURE ENLIVE (VAN) 240 ML LIQUID PO SCH (17:18)
--- NOTE | 2019-10-05 19:30 | NUR ---
PATIENT ALERT AND ORIENTED X 4. REQUESTING PAIN MEDICATION, WILL FOLLOW UP. RIGHT LOWER EXTREMITY IV INTACT IN PATENT. VANCOMYCIN RUNNING Q8H. ABSCESS DRESSING CLEAN DRY AND INTACT. WILL CONTINUE TO MONITOR.
[2019-10-05] MEDS: ENOXAPARIN SODIUM 40 MG/0.4 ML DISP.SYRIN SQ SCH (20:02)
[2019-10-05 20:07] VITALS: BP 134/66
[2019-10-05] MEDS: ZOLPIDEM 5 MG TABLET PO PRN (21:09)
[2019-10-06] MEDS: IV NS 1000 ML 1,000 ML IV PRN (03:55)
[2019-10-06] MEDS: VANCOMYCIN IV 1,000 MG in IV DEXTROSE 5% 250 ML IV SCH ×2 (04:00→11:06)
[2019-10-06 05:32] VITALS: BP 125/68
[2019-10-06] MEDS ORDERED: hydrALAZINE HCL 25 MG TABLET PO SCH (05:45)
[2019-10-06] MEDS: PANTOPRAZOLE SODIUM 40 MG TABLET.DR PO SCH (06:05)
--- NOTE | 2019-10-06 06:22 | NUR ---
Patient slept well during the night. IV maintained in lower extremity. Dilaudid given x 1 for pain management. Will continue to monitor.
[2019-10-06] MEDS: NICOTINE 21 MG/24HR PATCH TD SCH (08:03)
[2019-10-06] MEDS: ENSURE ENLIVE (VAN) 240 ML LIQUID PO SCH ×2 (08:04→16:29)
[2019-10-06] MEDS: SILVER SULFADIAZINE 1% CREAM 50 GM TP SCH (08:05)
[2019-10-06] MEDS: HYDROMORPHONE 1 MG/1 ML DISP.SYRIN IV PRN ×2 (09:57→16:21)
[2019-10-06 12:25] VITALS: BP 168/78
--- NOTE | 2019-10-06 14:06 | NUR ---
PHARMACY CLINICAL NOTES ( VANCOMYCIN DOSING) S: To continue vanco dosing for this 68 yo male patient for right buttock abscess O: BUN/SCR 8/0.9 (10/04), WBC 7.6 (10/04) , T 98.6 wt 163 kg ht 180 cm Vanco trough 10/05 at 1130:18.0 A/P: Will continue same dose of Vancomycin 1 gram IV every 8hrs and continue to monitor renal function.
[2019-10-06] MEDS ORDERED: TDAP DIPH,PERTUSS,TET VAC/PF 0.5 ML DISP.SYRIN IM ONE (14:15)
[2019-10-06] MEDS ORDERED: PANT40TA2 PO (16:19)
[2019-10-06] MEDS ORDERED: Silver Sulfadiazine 1% Cream TP (16:19)
[2019-10-06] MEDS ORDERED: ACID1TAB4 PO (16:19)
[2019-10-06] MEDS ORDERED: NICO-672 TD (16:19)
[2019-10-06] MEDS ORDERED: HYDR4TAB4 PO (16:19)
[2019-10-06] MEDS ORDERED: MULT-1045 PO (16:19)
[2019-10-06] MEDS ORDERED: ACET325T53 PO (16:19)
[2019-10-06] MEDS ORDERED: CEFA1VIA19 IV (16:19)
[2019-10-06] MEDS ORDERED: MAGN400O6 PO (16:19)
[2019-10-06] MEDS ORDERED: Lactose-Free Food PO (16:19)
[2019-10-06] MEDS ORDERED: ZOLP5TAB8 PO (16:19)
[2019-10-06 16:24] VITALS: BP 161/83
--- NOTE | 2019-10-06 18:55 | NUR ---
DC ORDERS RECEIVED NOTED AND CARRIED OUT,DC INSTRUCTION AND RN REPORT GIVEN TO THE [facility] PT LEFT THE FACILITY VIA AMBULANCES WITH MIDLINE FOR IV ANTIBIOTIC IN STABLE CONDITION
[2019-10-06] MEDS ORDERED: CEFAZOLIN 1 G in IV DEXTROSE 5% 50 ML IV SCH (22:00)
[2019-10-17 14:06] LABS: *HCV QUANT 4108990 IU/mL (.)
== END 2019-10-06 19:00 | DRG 871 ==
LOC: ER 14:37 → TELE3 17:06 → MEDSURG3 10-05 08:05
PROVIDERS: ATTEND Internal Medicine
PROC: 0H98XZZ Drainage of Buttock Skin, External Approach (ICD-10-PCS; principal; 2019-10-02)
PROC: 0J9F3ZZ Drainage of Left Upper Arm Subcutaneous Tissue and Fascia, Percutaneous Approach (ICD-10-PCS; 2019-10-04)
PROC: 05HA33Z Insertion of Infusion Device into Left Brachial Vein, Percutaneous Approach (ICD-10-PCS; 2019-10-06)
DX: A41.9 Sepsis, unspecified organism (principal); E43 Unspecified severe protein-calorie malnutrition; L02.31 Cutaneous abscess of buttock; E87.1 Hypo-osmolality and hyponatremia; E87.2 Acidosis; L97.921 Non-pressure chronic ulcer of unspecified part of left lower leg limited to breakdown of skin; L02.414 Cutaneous abscess of left upper limb; L03.114 Cellulitis of left upper limb; F11.23 Opioid dependence with withdrawal; L97.821 Non-pressure chronic ulcer of other part of left lower leg limited to breakdown of skin; Z59.0 Homelessness; S31.813A Puncture wound without foreign body of right buttock, initial encounter; W26.8XXA Contact with other sharp object(s), not elsewhere classified, initial encounter; Y92.89 Other specified places as the place of occurrence of the external cause; S41.0 Open wound of shoulder; X78.8XXS Intentional self-harm by other sharp object, sequela; F17.210 Nicotine dependence, cigarettes, uncomplicated; B95.61 Methicillin susceptible Staphylococcus aureus infection as the cause of diseases classified elsewhere; E11.65 Type 2 diabetes mellitus with hyperglycemia; Z86.19 Personal history of other infectious and parasitic diseases; I70.0 Atherosclerosis of aorta; T14.90XS Injury, unspecified, sequela
CPT/HCPCS: 36415; 70030-TC; 71045; 83605; 83735; 84100; 84443; 85025; 85730; 86803; 87040; 87070; 87077; 87521; 87806; 90715; 93005; A4217; A4663; G0378; J0690; J1170; J1650; J2543; J3370; J3490; J7030; J7050; J7060

== ENCOUNTER 2020-06-04 14:21 | Emergency (ER) | payer MEDICARE, OTHER ==
[~2020-06-04] VITALS: Ht 180.3 cm; Wt 68.0 kg
[~2020-06-04 14:21] MED LIST changes: +ACET325T53 PO; +ACID1TAB4 PO; +CEFA1VIA19 IV; -CEPH-570 PO; -HYDR-3326 PO; +HYDR4TAB4 PO; -LOSA25TA27 PO; +Lactose-Free Food PO; +MAGN400O6 PO; +MULT-1045 PO; +NICO-672 TD; +PANT40TA2 PO; -SULF1TAB48 PO; +Silver Sulfadiazine 1% Cream TP; +ZOLP5TAB8 PO
[2020-06-04] MEDS ORDERED: HYDROMORPHONE 1 MG/1 ML DISP.SYRIN ONE (14:42)
[2020-06-04] MEDS ORDERED: LIDOCAINE HCL 1% 20 ML VIAL TP ONE (14:45)
[2020-06-04] MEDS ORDERED: HYDROMORPHONE 1 MG/1 ML DISP.SYRIN IM ONE (14:45)
--- NOTE | 2020-06-04 15:19 | NUR ---
WOUND CARE, I AND D PERFORMED BY DR ARTHUR. PATIENT TOLERATED IT WELL. STATES DILAUDID HELPED WITH PAIN "A LOT". STERILE DRESSING WITH TEGADERM APPLIED. DC, RX AND F/U INSTRUCTIONS GIVEN AND EXPLAINED TO PATIENT WHO STATES HE UNDERSTANDS ALL INSTRUCTIONS.
== END 2020-06-04 15:21 | disposition home or self-care (01) ==
LOC: ER 14:21
DX: L03.114 Cellulitis of left upper limb (principal); L02.414 Cutaneous abscess of left upper limb; S41.132S Puncture wound without foreign body of left upper arm, sequela; X78.8XXS Intentional self-harm by other sharp object, sequela; Z59.0 Homelessness; F11.20 Opioid dependence, uncomplicated; I10 Essential (primary) hypertension; F17.200 Nicotine dependence, unspecified, uncomplicated
CPT/HCPCS: 10060; 76536; 96372; 99284; J1170; J3490; A4217; A4663